=== PATIENT | female | born 1965 | race Caucasian/White ===

== ENCOUNTER 2021-05-16 18:47 | Emergency (ER) | payer OTHER ==
[~2021-05-16] VITALS: Ht 149.9 cm; Wt 72.6 kg
--- NOTE | 2021-05-16 19:18 | NUR ---
BIB [facility] C/O "POUNDING" HEADACHE SINCE LAST NIGHT AT APPROXIMATELY 2100 WELL NECK PAIN AND STIFFNESS. PATIENT DESCRIBES "WORST HEADACHE". PT BEGAN EXPERIENCING DIPLOPIA AND MINOR R EYE DROOPING AT APPROXIMATELY 1800 WELL NO RELIEF FROM HEADACHE. PT NOT EXPEREINCING ANY OTHER NEURO DEFECITS. PT PLACED ON THE MONITOR AND HYPERTENSIVE UPON ARRIVAL. MD WAS AT THE BEDSIDE FOR EVALUATION.
--- NOTE | 2021-05-16 19:20 | NUR ---
Josemanuel araujo in EDM - 05/17/21 at 0316 by MARICRUZBBAGMELANIE SWALLOW EVAL NOT CONDUCTED PER MD DUE TO REMAINING NPO
--- NOTE | 2021-05-16 19:20 | NUR ---
CODE STROKE ACTIVATED
--- NOTE | 2021-05-16 19:21 | NUR ---
TELEMED REQUEST ACTIVATED
--- NOTE | 2021-05-16 19:23 | NUR ---
LEFT FOR CT
[2021-05-16] MEDS ORDERED: IOHEXOL-350 100 ML VIAL IV ONE (19:30)
[2021-05-16] MEDS ORDERED: CT SWABBABLE VALVE TRANS SET 1 EA INFUS.SET MC ONE (19:30)
[2021-05-16] MEDS ORDERED: IV NS 0.9% 250 ML IV ONE (19:30)
--- NOTE | 2021-05-16 19:30 | NUR ---
TELE NEURO WILL BE DR. COOKIE KIRK
--- NOTE | 2021-05-16 19:39 | NUR ---
BACK FROM CT
--- NOTE | 2021-05-16 19:50 | NUR ---
DR GARY, NEUROLOGIST, ON THE PHONE W/ DR MORRIS
[2021-05-16] MEDS ORDERED: HYDROMORPHONE 1 MG/1 ML DISP.SYRIN IV ONE ×3 (20:00→21:00)
[2021-05-16] MEDS ORDERED: hydrALAZINE HCL IV 20 MG VIAL IV ONE (20:00)
[2021-05-16] MEDS ORDERED: HYDROMORPHONE 1 MG/1 ML DISP.SYRIN ONE ×2 (20:00→21:25)
--- NOTE | 2021-05-16 20:04 | NUR ---
CALLED DR TRUJILLO LEFT VOICEMAIL
[2021-05-16 20:05] LABS: BASOPHILS # (AUTO) 0.1 K/uL (0.0-0.2); BASOPHILS % (AUTO) 0.5 % (0.0-2.0); EOSINOPHILS % (AUTO) 2.8 % (0.0-6.0); HEMATOCRIT 40 % (33-45); HEMOGLOBIN 13.3 g/dL (11.5-14.8); LYMPHOCYTES # (AUTO) 4.3 K/uL (0.8-4.8); LYMPHOCYTES % (AUTO) 42.6 % (20.0-44.0); MEAN CORPUSCULAR HGB CONC 33 g/dl (31.0-36.0); MEAN CORPUSCULAR VOLUME 90 fL (82-100); MONOCYTES # (AUTO) 0.8 K/uL (0.1-1.30); MONOCYTES % (AUTO) 8.3 % (2.0-12.0); NEUTROPHILS # (AUTO) 4.6 K/uL (1.8-8.9); NEUTROPHILS % (AUTO) 45.8 % (43.0-81.0); PLATELET COUNT (AUTO) 242 K/uL (150-450); RED BLOOD CELL COUNT(AUTO) 4.48 MIL/uL (4.0-5.2); WHITE BLOOD COUNT (AUTO) 10.2 K/uL (4.3-11.0)
[2021-05-16] MEDS ORDERED: hydrALAZINE HCL IV 20 MG VIAL ONE (20:05)
--- NOTE | 2021-05-16 20:12 | NUR ---
SPOKE TO DR TRUJILLO, HE IS IN SURGERY WILL CALL IN 5 MINUTES
[2021-05-16 20:18] LABS: CALCIUM, SERUM 8.6 mg/dL (8.5-10.1); CARBON DIOXIDE 23 mmol/L (21-32); CHLORIDE 106 mmol/L (98-107); CREATININE 0.9 mg/dL (0.6-1.3); GLUCOSE 77 mg/dL (74-106); POTASSIUM 3.1 mmol/L (3.5-5.1); SODIUM SERUM 139 mmol/L (136-145); UREA NITROGEN, BLOOD 17 mg/dL (7-18)
--- NOTE | 2021-05-16 20:20 | NUR ---
DR TRUJILLO SPEAKING WITH DR LEDESMA
[2021-05-16] MEDS ORDERED: NICARDIPINE IN DEXTROSE,ISO-OS 0 ML IV ONE (20:24)
--- NOTE | 2021-05-16 20:24 | NUR ---
PER DR TRUJILLO PT WILL BE TRANSFERRED TO [facility]
[2021-05-16] MEDS ORDERED: NICARDIPINE IN NACL, ISO-OSM 200 ML IV PRN (20:30)
--- NOTE | 2021-05-16 20:35 | NUR ---
covid swab collected and sent to the lab.
--- NOTE | 2021-05-16 20:59 | NUR ---
[facility] AT BED SIDE
[2021-05-16] MEDS ORDERED: ONDANSETRON HCL/PF - ER 4 MG/2 ML VIAL IV ONE (21:00)
[2021-05-16 21:21] VITALS: BP 112/76
[2021-05-16] MEDS ORDERED: ONDANSETRON HCL/PF 4 MG/2 ML VIAL ONE (21:23)
--- NOTE | 2021-05-16 21:30 | NUR ---
PT PICKED UP BY [facility] FOR TRANSPORT TO [facility]. ALL PATIENT BELONGINGS AND PATIENT PAPERWORK TRANSPORTED WITH EMS UNIT. PT TRANSFERRED PER ACLS PROTOCOL ON CENTRAL STERILE TECH WITH CARDENE INFUSING 5MG/HR. ALL VITALS STABLE AT TIME FO TRANSFER.
--- NOTE | 2021-05-16 21:46 | NUR ---
[facility]: PT ACCEPTED BY DR MOCK, TO ROOM 4515 ICU, RN FOR REPORT [phone]
== END 2021-05-16 21:35 | disposition short-term general hospital (02) ==
LOC: ER 18:50
DX: I67.1 Cerebral aneurysm, nonruptured (principal); I10 Essential (primary) hypertension; R51.9 Headache, unspecified; H53.2 Diplopia; H02.401 Unspecified ptosis of right eyelid; I25.2 Old myocardial infarction; Z95.5 Presence of coronary angioplasty implant and graft; E78.00 Pure hypercholesterolemia, unspecified; Z20.822 Contact with and (suspected) exposure to COVID-19
CPT/HCPCS: 36415; 70450; 70496; 70498; 71045; 80048; 82962; 84484; 85025; 85730; 87426; 93005; 96365; 96375 ×2; 96376; 99291; C9803; J0360; J1170 ×2; J2405; J7050; Q9967